=== PATIENT | male | born 1975 | race African-American/Black ===

== ENCOUNTER 2022-09-03 09:54 | Emergency (ER) | payer OTHER ==
[~2022-09-03] VITALS: Ht 170.2 cm; Wt 101.6 kg
[2022-09-03] MEDS ORDERED: TDAP [DIPH/PERTUSSIS/TET] 0.5 ML VIAL IM ONE ×2 (10:30→10:37)
--- NOTE | 2022-09-03 10:53 | NUR ---
TAKEN TO CT VIA MARTINA
[2022-09-03] MEDS ORDERED: LIDOCAINE MPF 1%-EPI 1:200,000 30 ML VIAL IJ ONE (12:13)
--- NOTE | 2022-09-03 13:22 | NUR ---
Patient discharged to home in stable condition. Written and verbal after care instructions given. Patient verbalizes understanding of instruction.
[2022-09-03 13:23] VITALS: BP 106/68
== END 2022-09-03 13:23 | disposition home or self-care (01) ==
LOC: ER 10:08
DX: S01.01XA Laceration without foreign body of scalp, initial encounter (principal); S09.90XA Unspecified injury of head, initial encounter; I10 Essential (primary) hypertension; Z88.8 Allergy status to other drugs, medicaments and biological substances; W18.39XA Other fall on same level, initial encounter; Y93.89 Activity, other specified; Y92.89 Other specified places as the place of occurrence of the external cause; Y99.8 Other external cause status
CPT/HCPCS: 99284; 70450; 12004; 90471; 90715; A6403; J3490

== ENCOUNTER 2022-09-14 10:13 | Emergency (ER) | payer OTHER ==
[~2022-09-14] VITALS: Ht 170.2 cm; Wt 101.2 kg
[2022-09-14 10:23] VITALS: BP 155/101
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
== END 2022-09-14 11:00 | disposition home or self-care (01) ==
LOC: ER 10:13
DX: Z48.02 Encounter for removal of sutures (principal); S01.01XD Laceration without foreign body of scalp, subsequent encounter; I10 Essential (primary) hypertension; Z88.8 Allergy status to other drugs, medicaments and biological substances; X58.XXXD Exposure to other specified factors, subsequent encounter